=== PATIENT | male | born 1950 | race Two or more races ===

== ENCOUNTER 2023-02-28 05:50 | Day surgery (SDC) | payer OTHER ==
[~2023-02-28 05:50] MED LIST: ACTOS45 MG PO; COZAAR100 MG PO; GLIMEPIRIDE4 M1 PO; SYNTHROID125 MCG PO; ZOCOR40 MG PO
== END 2023-02-28 17:25 | disposition home or self-care (01) ==
LOC: CIR.AMB 05:50
PROVIDERS: ATTEND Colon & Rectal Surgery
DX: K64.1 Second degree hemorrhoids (principal); K64.8 Other hemorrhoids; K92.1 Melena; R19.4 Change in bowel habit; Z20.822 Contact with and (suspected) exposure to COVID-19

== ENCOUNTER 2023-11-21 09:05 | Day surgery (SDC) | payer OTHER ==
[2023-11-21] MEDS ORDERED: METRONIDAZOLE/SODIUM CHLORIDE 500 MG/100 ML PIGGYBACK IV ONE ×2 (10:14→13:30)
[2023-11-21] MEDS ORDERED: CEFTRIAXONE SODIUM 2,000 MG VIAL ONE (10:14)
[2023-11-21] MEDS ORDERED: DIBUCAINE 15 GM OINT..GM. TUBE ONE (12:38)
[2023-11-21] MEDS ORDERED: HEMOSTATIC MATRIX 1 KIT KIT TOP ONE (13:30)
[2023-11-21] MEDS ORDERED: DIBUCAINE 15 GM OINT..GM. TUBE RECTAL ONE (13:30)
[2023-11-21] MEDS ORDERED: CEFTRIAXONE SODIUM 2,000 MG VIAL IV ONE (13:30)
== END 2023-11-21 20:15 | disposition home or self-care (01) ==
LOC: CIR.AMB 09:05
PROVIDERS: ATTEND Colon & Rectal Surgery
DX: K60.2 Anal fissure, unspecified (principal); Z20.822 Contact with and (suspected) exposure to COVID-19